=== PATIENT | female | born 1980 | race Caucasian/White ===

== ENCOUNTER 2016-08-11 14:56 | Outpatient (CLI) | payer MEDICAID | END 2016-08-11 14:57 | disposition home or self-care (01) | DX: M54.5 Low back pain (principal) ==

== ENCOUNTER 2017-05-08 15:28 | Emergency (ER) | payer MEDICAID ==
[2017-05-08 15:37] VITALS: BP 104/66
--- NOTE | 2017-05-08 15:56 | ED Physician Documentation ---
PD HPI UPPER EXT INJURY - Stated complaint Stated Complaint: RT ARM PX - Chief complaint Chief Complaint: Ext Problem - History of Present Illness Location: Right, Forearm Type of injury: Blunt / blow (she hit a boulder with pickax 5 days ago, with pain right wrist, that has persisted. Creakiy feeling with ROM.) Where injury occurred: Work Timing - onset: How many days ago (4) Timing - duration: Days (4) Improved by: Rest Worsened by: Moving, Palpating Associated symptoms: Swelling. No: Weakness, Numbness, Discolored Similar symptoms before: Has not had sx before Recently seen: Not recently seen Review of Systems Skin: denies: Abrasion (s), Laceration (s) Neurologic: denies: Focal weakness, Numbness PD PAST MEDICAL HISTORY - Past Medical History Cardiovascular: None Respiratory: None Neuro: None Endocrine/Autoimmune: None Musculoskeletal: None - Past Surgical History General: Appendectomy - Present Medications Home Medications: Ambulatory Orders Medication Instructions Recorded Confirmed DULoxetine [Cymbalta] 30 mg PO DAILY 05/08/17 05/08/17 HYDROcod/ACETAM 5/325 [[place] 5/325] 1 tab PO Q6H PRN #15 tablet 05/08/17 - Allergies Allergies/Adverse Reactions: Allergies Allergy/AdvReac Type Severity Reaction Status Date / Time No Known Drug Allergies Allergy Verified 05/08/17 15:37 PD ED PE NORMAL - Vitals Vital signs reviewed: Yes - General General: Alert and oriented X 3, No acute distress, Well developed/nourished - Derm Derm: Normal color, Warm and dry, No rash - Extremities Extremities: Other (right wrist with some swelling over radial dorsal area. Tender locally. No redness nor sores. Creaky feeling eith thumb extension and wrist extension c/w tendonitis. ) Results - Labs Labs: Laboratory Tests 05/08/17 16:25 Ur Specific [place] 1.025 Urine HCG, Qual NEGATIVE - Rads (name of study) wrist Radiology: Prelim report reviewed (no fracture) PD MEDICAL DECISION MAKING - ED course Complexity details: reviewed results (no fracture), considered differential ( has crepitant feeling on movement c/w tendonitis for thumb and wrist (EPL and ECR tendons)), d/w patient Departure - Departure Disposition: 01 Home, Self Care Clinical Impression: Tendonitis of wrist, right Right wrist sprain Qualifiers: Encounter type: initial encounter Qualified Code(s): S63.501A - Unspecified sprain of right wrist, initial encounter Condition: Stable Record reviewed to determine appropriate education?: Yes Follow-Up: Muriel Jimenez ARNP [Primary Care Provider] - Prescriptions: HYDROcod/ACETAM 5/325 [[place] 5/325] 1 tab PO Q6H PRN #15 tablet PRN Reason: Pain Comments: Ibuprofen 2-3 times a day for the next week. Wrist splint for the wrist and thumb to help reduce motion and irritation of the muscles and tendons. Add Tylenol or hydrocodone if needed for pain. This should improve slowly over the next week or so. Follow-up with your primary care if not. Discharge Date/Time: 05/08/17 17:36
[2017-05-08 16:42] LABS: HCG UR QUAL NEGATIVE
--- NOTE | 2017-05-08 17:05 | XRAY Preliminary Report ---
Exam: XR FOREARM RT IMPRESSION: No fracture or subluxation. [facility] SITE ID: [id number]
--- NOTE | 2017-05-08 17:08 | XRAY Report ---
EXAM: RIGHT FOREARM RADIOGRAPHY EXAM DATE: 05/08/2017 04:55 PM. CLINICAL HISTORY: Wrist injury few days ago. COMPARISON: None. TECHNIQUE: 2 views. FINDINGS: Bones: Normal. No fractures or bone lesions. Joints: Normal. No effusions or subluxations in the visualized wrist or elbow joints. Soft Tissues: Normal. No soft tissue swelling. IMPRESSION: No fracture or subluxation. [facility] Referring Provider Line: [phone] SITE ID: [id number]
== END 2017-05-08 17:36 | disposition home or self-care (01) ==
LOC: ED 15:28
DX: M77.9 Enthesopathy, unspecified (principal); S63.501A Unspecified sprain of right wrist, initial encounter; W22.09XA Striking against other stationary object, initial encounter; Y93.89 Activity, other specified
CPT/HCPCS: 81025; 99283

== ENCOUNTER 2018-01-11 11:59 | Emergency (ER) | payer SELFPAY ==
[2018-01-11 12:30] LABS: HCG UR QUAL NEGATIVE
--- NOTE | 2018-01-11 12:30 | ED Physician Documentation ---
PD HPI SYNCOPE - Stated complaint Stated Complaint: BLACKED OUT/DIZZT/HEAD INJ - Chief complaint Chief Complaint: Neuro - History obtained from History obtained from: Patient, Friend - History of Present Illness Witnessed: Witnessed Timing - onset: Last night (Her boyfriend saw patient get pale and lightheaded as stood up and then fell unguarded onto deck and struck head hard. Awoke less than a minute later and was dazed. No vomiting. Went to bed and this morning is having some headache and feels incoordinate and slower thought process. Prior to the fainting last night, no headache nor chest pain. She had felt okay during the day. Perhaps had not had much to eat and had just smoked some marijuana (which is common so not an unusual thing for her), was post-coital and went outside and was sitting for a few minutes. Got up and felt lightheaded , then fainted.) Preceding symptoms: Light headed. No: Headache, Chest pain, Abdominal pain, Nausea / vomiting Associated symptoms: Headache (after the fall). No: Chest pain, Nausea / vomiting Contributing factors: Decreased PO intake, Just stood up. No: Recent med change Injury occurred: Fell, Head injury Similar symptoms before: Has not had sx before Recently seen: Not recently seen Review of Systems Constitutional: denies: Fever, Chills, Myalgias Nose: denies: Rhinorrhea / runny nose, Congestion Throat: denies: Sore throat Cardiac: denies: Chest pain / pressure, Palpitations Respiratory: denies: Dyspnea, Cough GI: denies: Abdominal Pain, Nausea, Vomiting, Diarrhea : denies: Dysuria, Frequency, Missed period Skin: denies: Abrasion (s), Laceration (s) Musculoskeletal: denies: Neck pain, Back pain Neurologic: reports: Altered mental status (feels slow thinking today and slightly off balance walking). denies: Focal weakness, Numbness PD PAST MEDICAL HISTORY - Past Medical History Past Medical History: Yes Cardiovascular: None Respiratory: None Endocrine/Autoimmune: None Psych: Depression Musculoskeletal: None - Past Surgical History Past Surgical History: Yes General: Appendectomy - Present Medications Home Medications: Ambulatory Orders Medication Instructions Recorded Confirmed DULoxetine [Cymbalta] 30 mg PO DAILY 05/08/17 05/08/17 HYDROcod/ACETAM 5/325 [[place] 5/325] 1 tab PO Q6H PRN #15 tablet 05/08/17 - Allergies Allergies/Adverse Reactions: Allergies Allergy/AdvReac Type Severity Reaction Status Date / Time No Known Drug Allergies Allergy Verified 05/08/17 15:37 - Social History Does the pt smoke?: Yes Smoking Status: Current every day smoker Does the pt drink ETOH?: No Does the pt have substance abuse?: Yes Substance Use and Type: Marijuana - Immunizations Immunizations are current?: Yes - POLST Patient has POLST: No PD ED PE NORMAL - Vitals Vital signs reviewed: Yes - General General: Alert and oriented X 3, No acute distress, Well developed/nourished - HEENT HEENT: PERRL, EOMI, Ears normal, Moist mucous membranes, Pharynx benign, Other ( back of head tender with slight focal swelling right side. 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, No motor deficit, No sensory deficit, Normal speech Eye Opening: Spontaneous Motor: Obeys Commands Verbal: Oriented GCS Score: 15 Results - Vitals Vitals: Oxygen O2 Source Room air - Labs Labs: Laboratory Tests 01/11/18 01/11/18 01/11/18 12:08 12:20 12:20 WBC 10.9 H RBC 4.94 Hgb 15.1 Hct 45.7 MCV 92.5 MCH 30.5 MCHC 32.9 RDW 12.7 Plt Count 299 MPV 7.8 L Neut # (Auto) 7.5 H Lymph # (Auto) 2.6 [place] # (Auto) 0.6 Eos # (Auto) 0.1 Baso # (Auto) 0.0 Absolute Nucleated RBC 0.00 Nucleated RBC % 0.0 Sodium 135 Potassium 3.5 Chloride 103 Carbon Dioxide 27 Anion Gap 5.0 L BUN 15 Creatinine 0.7 Estimated GFR (MDRD) 95 Glucose 99 POC Whole Bld Glucose 87 Calcium 9.3 Total Bilirubin 0.6 AST 16 ALT 14 Alkaline Phosphatase 43 Total Protein 7.7 Albumin 4.7 Globulin 3.0 Albumin/Globulin Ratio 1.6 Lipase 28 Urine Color Urine Clarity Urine pH Ur Specific [place] Urine Protein Urine Glucose (UA) Urine Ketones Urine Occult Blood Urine Nitrite Urine Bilirubin Urine Urobilinogen Ur Leukocyte Esterase Ur Microscopic Review Urine Culture Comments Urine HCG, Qual 01/11/18 01/11/18 12:20 12:22 WBC RBC Hgb Hct MCV MCH MCHC RDW Plt Count MPV Neut # (Auto) Lymph # (Auto) [place] # (Auto) Eos # (Auto) Baso # (Auto) Absolute Nucleated RBC Nucleated RBC % Sodium Potassium Chloride Carbon Dioxide Anion Gap BUN Creatinine Estimated GFR (MDRD) Glucose POC Whole Bld Glucose Calcium Total Bilirubin AST ALT Alkaline Phosphatase Total Protein Albumin Globulin Albumin/Globulin Ratio Lipase Urine Color YELLOW Urine Clarity CLEAR Urine pH 5.5 Ur Specific [place] 1.025 1.025 Urine Protein NEGATIVE Urine Glucose (UA) NEGATIVE Urine Ketones NEGATIVE Urine Occult Blood NEGATIVE Urine Nitrite NEGATIVE Urine Bilirubin NEGATIVE Urine Urobilinogen 0.2 (NORMAL) Ur Leukocyte Esterase NEGATIVE Ur Microscopic Review NOT INDICATED Urine Culture Comments NOT INDICATED Urine HCG, Qual NEGATIVE - Rads (name of study) head CT Radiology: Prelim report reviewed, EMP read contemporaneously PD MEDICAL DECISION MAKING - ED course Complexity details: considered differential (the fainting seems likely postural and a confluence of minor factors (underhydrated perhaps, post-coital, etc) and the current symptoms sound concussive. No ICH on CT. ), d/w patient - Sepsis Event Vital Signs: Oxygen O2 Source Room air Departure - Departure Disposition: 01 Home, Self Care Clinical Impression: Episode of syncope Qualifiers: Syncope type: unspecified Qualified Code(s): R55 - Syncope and collapse Mild concussion Qualifiers: Encounter type: initial encounter Loss of consciousness presence/duration: with LOC of 30 min or less Qualified Code(s): S06.0X1A - Concussion with loss of consciousness of 30 minutes or less, initial encounter Condition: Stable Record reviewed to determine appropriate education?: Yes Instructions: ED Concussion, ED Fainting Unkn Cause Follow-Up: Muriel Jimenez ARNP [Primary Care Provider] - Comments: Tylenol or ibuprofen if needed for pains. Drink lots of fluids. It sounds like your fainting episode was likely a combination of mild influences that led to transient drop in blood pressure. Your basic testing here does not show other obvious causes. Your symptoms today are likely concussion from hitting her head. Your head CT appears normal. Like leave the symptoms will resolve over the next 2-3 days. Sometimes it can last longer though. Recheck if not improved over the next week. Forms: Activity restrictions Discharge Date/Time: 01/11/18 13:39
[2018-01-11 12:33] LABS: BASOPHILS % (AUTO) 0.3 %; EOSINOPHILS # (AUTO) 0.1 10^3/uL (0.0-0.7); EOSINOPHILS % (AUTO) 0.9 %; HGB - HEMOGLOBIN 15.1 g/dL (12.0-16.0); LYMPHOCYTES # (AUTO) 2.6 10^3/uL (1.5-3.5); LYMPHOCYTES % (AUTO) 23.6 %; MEAN CORPUSCULAR HEMOGLOBIN 30.5 pg (27.0-31.0); MEAN CORPUSCULAR HGB CONC 32.9 g/dL (32.0-36.0); MEAN CORPUSCULAR VOLUME 92.5 fL (81.0-99.0); MEAN PLATELET VOLUME 7.8 fL (7.9-10.8); MONOCYTES # (AUTO) 0.6 10^3/uL (0.0-1.0); MONOCYTES % (AUTO) 5.9 %; NEUTROPHILS # (AUTO) 7.5 10^3/uL (1.5-6.6); NEUTROPHILS % (AUTO) 69.3 %; PLT - PLATELET COUNT 299 10^3/uL (130-450); RED BLOOD COUNT 4.94 10^6/uL (4.20-5.40); RED CELL DISTRIBUTION WIDTH 12.7 % (12.0-15.0); WHITE BLOOD COUNT 10.9 x10^3/uL (4.8-10.8)
[2018-01-11 12:39] LABS: ALBUMIN 4.7 g/dL (3.2-5.5); ALBUMIN/GLOBULIN RATIO 1.6 (1.0-2.2); BILIRUBIN,TOTAL 0.6 mg/dL (0.2-1.0); CALCIUM 9.3 mg/dL (8.5-10.3); CREATININE 0.7 mg/dL (0.4-1.0); TOTAL PROTEIN 7.7 g/dL (6.7-8.2)
[2018-01-11 12:42] LABS: CLARITY,URINE CLEAR (CLEAR); LEUKOCYTE ESTERASE, URINE NEGATIVE (NEGATIVE); NITRITE,URINE NEGATIVE (NEGATIVE); PH,URINE 5.5 PH (5.0-7.5); PROTEIN,URINE NEGATIVE (NEGATIVE); UROBILINOGEN,URINE 0.2 (NORMAL) E.U./dL (NORMAL)
[2018-01-11 12:43] LABS: BILIRUBIN,URINE NEGATIVE (NEGATIVE); GLUCOSE, URINE (UA) NEGATIVE (NEGATIVE); KETONES,URINE (UA) NEGATIVE (NEGATIVE); OCCULT BLOOD,URINE NEGATIVE (NEGATIVE)
--- NOTE | 2018-01-11 13:08 | CT Report ---
Procedure Date: 01/11/2018 Accession Number: [id number] / [id number] Procedure: CT - Head W/O CPT Code: FULL RESULT: EXAM: CT HEAD EXAM DATE: 01/11/2018 12:38 PM. CLINICAL HISTORY: Concussion loc ataxic gait. COMPARISON: None. TECHNIQUE: Multiaxial CT images were obtained from the foramen magnum to the vertex. Reformats: Coronal. IV contrast: None. In accordance with CT protocol optimization, one or more of the following dose reduction techniques were utilized for this exam: automated exposure control, adjustment of mA and/or KV based on patient size, or use of iterative reconstructive technique. FINDINGS: Parenchyma: No intraparenchymal hemorrhage. No evidence of mass, midline shift, or CT findings of infarction. Trivedi-white differentiation is distinct. Extraaxial Spaces: Normal for age. No subdural or epidural collections identified. Ventricles: Normal in size and position. Sinuses and Orbits: Imaged paranasal sinuses, orbits, and mastoids show no significant abnormality. Bones: No evidence of fracture or calvarial defect. Other: None. IMPRESSION: Normal head CT. [facility]
[2018-01-11] MEDS ORDERED: IBUPROFEN 600 MG TABLET PO STA (13:20)
[2018-01-11] MEDS ORDERED: ACETAMINOPHEN 325 MG TABLET PO STA (13:20)
[2018-01-11 13:37] VITALS: BP 108/70
== END 2018-01-11 13:39 | disposition home or self-care (01) ==
LOC: ED 11:59
DX: R55 Syncope and collapse (principal); S06.0X1A Concussion with loss of consciousness of 30 minutes or less, initial encounter; X58.XXXA Exposure to other specified factors, initial encounter; F17.200 Nicotine dependence, unspecified, uncomplicated
CPT/HCPCS: 36415; 70450; 80053; 81003; 81025; 83690; 85025; 93005; 99283; A9270; 81001; 87086

== ENCOUNTER 2020-10-23 18:29 | Outpatient (CLI) | payer OTHER ==
--- NOTE | 2020-10-24 16:47 | XRAY Report ---
PROCEDURE: Knee 2 View RT INDICATIONS: CANCER RIGHT LEG TECHNIQUE: 2 views of the right knee(s) were acquired. COMPARISON: None. FINDINGS: Bones: No fractures or dislocations. No suspicious bony lesions. Soft tissues: No joint effusion. No suspicious soft tissue calcifications. There is an ill-defined approximately 15 mm soft tissue density at the skin surface located approximately 15 mm inferior to the metallic marker. IMPRESSION: Ill-defined approximate 15 mm subcutaneous soft tissue density as above. It is overall n onspecific. Given concern for malignancy, further evaluation with MRI with and without contrast is re commended. Reviewed by: Sherri Gill MD on 10/24/2020 4:45 PM PDT Approved by: Sherri Gill MD on 10/24/2020 4:45 PM PDT Station ID: [id number]
== END 2020-10-23 18:30 | disposition home or self-care (01) ==
LOC: DI 18:29
PROVIDERS: ATTEND Internal Medicine
DX: C43.71 Malignant melanoma of right lower limb, including hip (principal)

== ENCOUNTER 2021-01-07 10:12 | Emergency (ER) | payer OTHER ==
--- NOTE | 2021-01-07 10:22 | ED Physician Documentation ---
PD HPI HEENT - Stated complaint Stated Complaint: STIFF JAW - History obtained from History obtained from: Patient - History of Present Illness Timing - onset: How many days ago (3) Timing - duration: Days (3) Timing - details: Abrupt onset, Still present Location: Mouth (pain in right jaw/mandible with feeling of muscle stiffness with opening/ chewing. Also had muscle cramp in foot while starting to sleep last night. That is improved today. General feeling of aches and fatigue as well.) Worsens: No: Swalllowing, Position Associated symptoms: No: Fever, Congestion, Rhinorrhea, Facial swelling, Headache Similar symptoms before: Has not had sx before Recently seen: Clinic (Oncology with starting chemo (2 oral meds that are kinase inhibitors - targeted immune therapy) 3 days ago for melanoma of her right thigh.) Review of Systems Constitutional: denies: Fever, Chills Nose: denies: Rhinorrhea / runny nose, Congestion Throat: denies: Sore throat Respiratory: denies: Cough GI: denies: Nausea, Vomiting, Diarrhea Skin: denies: Rash, Lesions Neurologic: denies: Focal weakness, Numbness, Altered mental status, Headache PD PAST MEDICAL HISTORY - Past Medical History Cardiovascular: None Respiratory: None Endocrine/Autoimmune: None Psych: Depression Musculoskeletal: None - Past Surgical History Past Surgical History: Yes General: Appendectomy - Present Medications Home Medications: Ambulatory Orders Medication Instructions Recorded Confirmed Dabrafenib Mesylate [Tafinlar] 150 mg pe PO BID 01/07/21 01/07/21 Trametinib Dimethyl Sulfoxide 2 mg PO DAILY 01/07/21 01/07/21 [Mekinist] tiZANidine [Zanaflex] 4 mg PO Q8H PRN #25 tablet 01/07/21 - Allergies Allergies/Adverse Reactions: Allergies Allergy/AdvReac Type Severity Reaction Status Date / Time No Known Drug Allergies Allergy Verified 01/07/21 10:33 - Social History Does the pt smoke?: Yes Smoking Status: Current every day smoker Does the pt drink ETOH?: No Does the pt have substance abuse?: Yes - Immunizations Immunizations are current?: Yes - POLST Patient has POLST: No PD ED PE NORMAL - Vitals Vital signs reviewed: Yes - General General: Alert and oriented X 3, No acute distress, Well developed/nourished - HEENT HEENT: Pharynx benign, Dentition benign (no gum swelling nor local tenderness to palpation. ) - Neck Neck: Supple, no meningeal sign, No adenopathy - Cardiac Cardiac: RRR, No murmur - Respiratory Respiratory: Clear bilaterally - Derm Derm: Normal color, Warm and dry - Extremities Extremities: No tenderness to palpate, Normal ROM s pain, No edema, No calf tenderness / cord - Neuro Neuro: Alert and oriented X 3, No motor deficit, Normal speech Eye Opening: Spontaneous Motor: Obeys Commands Verbal: Oriented GCS Score: 15 Results - Vitals Vitals: Vital Signs - 24 hr 01/07/21 10:29 Temperature 37.1 C Heart Rate 67 Respiratory 16 Rate Blood Pressure 122/75 O2 Saturation 99 Oxygen O2 Source Room air - Labs Labs: Laboratory Tests 01/07/21 01/07/21 11:09 11:09 WBC 6.2 RBC 4.41 Hgb 13.6 Hct 40.3 MCV 91.4 MCH 30.8 MCHC 33.7 RDW 12.1 Plt Count 249 MPV 9.4 Neut # (Auto) 2.7 Lymph # (Auto) 2.9 [place] # (Auto) 0.5 Eos # (Auto) 0.1 Baso # (Auto) 0.0 Absolute Nucleated RBC 0.00 Nucleated RBC % 0.0 Sodium 139 Potassium 4.2 Chloride 104 Carbon Dioxide 27 Anion Gap 8.0 BUN 15 Creatinine 0.7 Estimated GFR (MDRD) 94 Glucose 84 Calcium 9.3 Magnesium 2.1 Total Bilirubin 0.6 AST 16 ALT 13 Alkaline Phosphatase 36 L Total Creatine Kinase 107 Total Protein 6.4 L Albumin 4.5 Globulin 1.9 L Albumin/Globulin Ratio 2.4 H Lipase 27 - Rads (name of study) max/facial CT Radiology: Prelim report reviewed (no acute bony lesions/masses), See rad report PD MEDICAL DECISION MAKING - ED course Complexity details: reviewed results (MFM CT without lesions. Labs good. Presume myalgias and cramps as side effect of her chemo, with one of them having muscle pains as listed common side effect. ), considered differential (likely muscle spasms as listed side effect of her chemo. Concern from her Oncology office is the pain in jaw after starting chemo 3 days ago could be "uncovering" of bone met and reaction of the lesion to the chemo, so Oncology wanting imaging of the area. Referred pt to the ER. ), d/w patient, d/w strategic planning consultant ([facility] Oncology Nurse who did ask for imaging of jaw due to concern for mets from melanoma. Labs too regarding lytes. ) Departure - Departure Disposition: Home, Self Care Clinical Impression: Muscle spasm Condition: Stable Record reviewed to determine appropriate education?: Yes Follow-Up: JAREN ARMIJO MD [Physician No Access] - Prescriptions: tiZANidine [Zanaflex] 4 mg PO Q8H PRN #25 tablet PRN Reason: Spasms Comments: I talked with the medical oncology office and gave them the results. They did say that a muscle relaxant would be appropriate to use if needed for spasms, and also to be sure to stay well-hydrated. Follow-up Wednesday as planned. Discharge Date/Time: 01/07/21 12:04
[2021-01-07 10:33] VITALS: BP 122/75
[2021-01-07 11:13] LABS: BASOPHILS % (AUTO) 0.2 %; EOSINOPHILS # (AUTO) 0.1 10^3/uL (0.0-0.7); EOSINOPHILS % (AUTO) 1.1 %; HCT - HEMATOCRIT 40.3 % (37.0-47.0); HGB - HEMOGLOBIN 13.6 g/dL (12.0-16.0); LYMPHOCYTES # (AUTO) 2.9 10^3/uL (1.5-3.5); LYMPHOCYTES % (AUTO) 46.1 %; MEAN CORPUSCULAR HEMOGLOBIN 30.8 pg (27.0-31.0); MEAN CORPUSCULAR HGB CONC 33.7 g/dL (32.0-36.0); MEAN CORPUSCULAR VOLUME 91.4 fL (81.0-99.0); MEAN PLATELET VOLUME 9.4 fL (7.9-10.8); MONOCYTES # (AUTO) 0.5 10^3/uL (0.0-1.0); MONOCYTES % (AUTO) 8.4 %; NEUTROPHILS # (AUTO) 2.7 10^3/uL (1.5-6.6); PLT - PLATELET COUNT 249 10^3/uL (130-450); RED BLOOD COUNT 4.41 10^6/uL (4.20-5.40); RED CELL DISTRIBUTION WIDTH 12.1 % (12.0-15.0); WHITE BLOOD COUNT 6.2 x10^3/uL (4.8-10.8)
[2021-01-07 11:27] LABS: ALBUMIN 4.5 g/dL (3.2-5.5); ALBUMIN/GLOBULIN RATIO 2.4 (1.0-2.2); BILIRUBIN,TOTAL 0.6 mg/dL (0.2-1.0); CALCIUM 9.3 mg/dL (8.5-10.3); CREATININE 0.7 mg/dL (0.4-1.0); MAGNESIUM 2.1 mg/dL (1.7-2.8); POTASSIUM 4.2 mmol/L (3.5-5.0); TOTAL PROTEIN 6.4 g/dL (6.7-8.2)
--- NOTE | 2021-01-07 11:34 | CT Report ---
PROCEDURE: MAXILLOFACIAL WO INDICATIONS: right jaw pain; h/o melanoma TECHNIQUE: Noncontrast 1.5 mm thick axial images acquired from the mandible through the frontal sinuses, with co karen and sagittal reformatting. For radiation dose reduction, the following was used: automated ex posure control, adjustment of mA and/or kV according to patient size. COMPARISON: Correlation is made with overlapping portions of prior head CT, 01/11/2019 FINDINGS: Image quality: Excellent. Bones and teeth: In this patient with this given history, scrutiny is given to the right mandible. T he right mandible demonstrates a normal appearance, without fractures or suspicious lesions. No dislo cation can be seen at the right temporomandibular joint. The remainder of the mandible is unremarkabl e. Orbital alvarez are intact. Sinus alvarez show no fracture or deformity. Nasal bones and septum are int act. Zygomatic arches are intact. Pterygoid plates are intact. Visualized portions of the skull ba se and auditory canals are intact. Sinuses: Paranasal sinuses are aerated, without fluid levels, mucosal thickening, or mucoceles. Mas toid air cells are aerated. Soft tissues: The soft tissues overlying the right mandible are within normal limits. No edema, masses, or fluid collections. No enlarged lymph nodes. No soft tissue lacerations or debr is. Vascular: Visualized vascular structures appear normal in the absence of contrast. Bony vascular fo ramina and canals are intact. IMPRESSION: Normal-appearing right mandible and soft tissues overlying the right mandible, without an imaging exp lanation found for the patient's presenting symptoms. Reviewed by: Silvino Mejia MD on 01/07/2021 10:33 AM KYLEE Approved by: Silvino Mejia MD on 01/07/2021 10:33 AM KYLEE Station ID: [id number]
== END 2021-01-07 12:04 | disposition home or self-care (01) ==
LOC: ED 10:12
DX: M62.838 Other muscle spasm (principal); R68.84 Jaw pain; C43.71 Malignant melanoma of right lower limb, including hip; F17.200 Nicotine dependence, unspecified, uncomplicated
CPT/HCPCS: 36415; 80053; 82550; 83690; 83735; 85025; 99283

== ENCOUNTER 2021-01-17 15:01 | Emergency (ER) | payer OTHER ==
[2021-01-17] MEDS ORDERED: KETOROLAC 30 MG/ML VIAL IVP STA (15:45)
[2021-01-17] MEDS ORDERED: SODIUM CHLORIDE 0.9% 1,000 ML IV STA (15:45)
--- NOTE | 2021-01-17 15:46 | ED Physician Documentation ---
History of Present Illness - Stated complaint Stated Complaint: FEVER,GODDARD,NAUSEA,ACHES - Chief complaint Chief Complaint: General - History obtained from History obtained from: Patient - Additonal information Additional information: 40-year-old woman with stage IIIc melanoma getting 2 rounds of 2 types of immunotherapy had second Pfizer brand Covid vaccine yesterday and overnight developed fevers to 100.5, body aches and headaches. No sore throat, runny nose, shortness of breath, or urinary complaints. Review of Systems Constitutional: reports: Fever, Chills, Myalgias, Fatigue Nose: denies: Rhinorrhea / runny nose Throat: denies: Sore throat Respiratory: denies: Dyspnea, Cough PD PAST MEDICAL HISTORY - Past Medical History Cardiovascular: None Respiratory: None Endocrine/Autoimmune: None Psych: Depression Musculoskeletal: None - Past Surgical History Past Surgical History: Yes General: Appendectomy Derm: Skin cancer surgery - Present Medications Home Medications: Ambulatory Orders Medication Instructions Recorded Confirmed Dabrafenib Mesylate [Tafinlar] 150 mg pe PO BID 01/07/21 01/07/21 Trametinib Dimethyl Sulfoxide 2 mg PO DAILY 01/07/21 01/07/21 [Mekinist] tiZANidine [Zanaflex] 4 mg PO Q8H PRN #25 tablet 01/07/21 - Allergies Allergies/Adverse Reactions: Allergies Allergy/AdvReac Type Severity Reaction Status Date / Time No Known Drug Allergies Allergy Verified 01/17/21 15:05 - Social History Does the pt smoke?: Yes Smoking Status: Current every day smoker Does the pt drink ETOH?: No Does the pt have substance abuse?: Yes - Immunizations Immunizations are current?: Yes - POLST Patient has POLST: No PD ED PE NORMAL - Vitals Vital signs reviewed: Yes - General General: Alert and oriented X 3, No acute distress - HEENT HEENT: Pharynx benign - Cardiac Cardiac: RRR, No murmur - Respiratory Respiratory: No respiratory distress, Clear bilaterally - Abdomen Abdomen: Non tender - Derm Derm: No rash - Neuro Neuro: Alert and oriented X 3, Normal speech Results - Vitals Vitals: Vital Signs - 24 hr 01/17/21 15:05 Temperature 37.7 C Heart Rate 100 Respiratory 16 Rate Blood Pressure 108/69 O2 Saturation 98 Oxygen O2 Source Room air - Labs Labs: Laboratory Tests 01/17/21 01/17/21 15:58 15:58 WBC 4.6 L RBC 4.78 Hgb 14.3 Hct 42.7 MCV 89.3 MCH 29.9 MCHC 33.5 RDW 12.3 Plt Count 178 MPV 9.8 Neut # (Auto) 2.4 Lymph # (Auto) 1.6 [place] # (Auto) 0.5 Eos # (Auto) 0.0 Baso # (Auto) 0.0 Absolute Nucleated RBC 0.00 Nucleated RBC % 0.0 Sodium 132 L Potassium 3.8 Chloride 101 Carbon Dioxide 25 Anion Gap 6.0 BUN 12 Creatinine 0.7 Estimated GFR (MDRD) 94 Glucose 101 H Calcium 8.8 PD MEDICAL DECISION MAKING - ED course ED course: 40-year-old woman on immunotherapy for type stage IIIc melanoma presents with typical post vaccine reaction after Covid vaccine. Sent in to rule out more significant issue, given the fairly normal white count and lack of neutropenia I do not think any other specific intervention is necessary. Departure - Departure Disposition: 01 Home, Self Care Clinical Impression: Vaccine reaction Qualifiers: Encounter type: initial encounter Qualified Code(s): T50.Z95A - Adverse effect of other vaccines and biological substances, initial encounter Condition: Good Record reviewed to determine appropriate education?: Yes Instructions: ED Fever Unconf Cause Comments: You should be better within 24 hours, return for new or worsening symptoms.
[2021-01-17 16:06] LABS: BASOPHILS % (AUTO) 0.2 %; EOSINOPHILS % (AUTO) 0.4 %; HCT - HEMATOCRIT 42.7 % (37.0-47.0); HGB - HEMOGLOBIN 14.3 g/dL (12.0-16.0); LYMPHOCYTES # (AUTO) 1.6 10^3/uL (1.5-3.5); LYMPHOCYTES % (AUTO) 34.5 %; MEAN CORPUSCULAR HEMOGLOBIN 29.9 pg (27.0-31.0); MEAN CORPUSCULAR HGB CONC 33.5 g/dL (32.0-36.0); MEAN CORPUSCULAR VOLUME 89.3 fL (81.0-99.0); MEAN PLATELET VOLUME 9.8 fL (7.9-10.8); MONOCYTES # (AUTO) 0.5 10^3/uL (0.0-1.0); MONOCYTES % (AUTO) 11.6 %; NEUTROPHILS # (AUTO) 2.4 10^3/uL (1.5-6.6); NEUTROPHILS % (AUTO) 53.1 %; PLT - PLATELET COUNT 178 10^3/uL (130-450); RED BLOOD COUNT 4.78 10^6/uL (4.20-5.40); RED CELL DISTRIBUTION WIDTH 12.3 % (12.0-15.0); WHITE BLOOD COUNT 4.6 x10^3/uL (4.8-10.8)
[2021-01-17 16:12] LABS: CALCIUM 8.8 mg/dL (8.5-10.3); CREATININE 0.7 mg/dL (0.4-1.0); POTASSIUM 3.8 mmol/L (3.5-5.0)
[2021-01-17 16:23] VITALS: BP 111/64
== END 2021-01-17 16:55 | disposition home or self-care (01) ==
LOC: ED 15:01
DX: R50.9 Fever, unspecified (principal); R51.9 Headache, unspecified; M79.10 Myalgia, unspecified site; T50.Z95A Adverse effect of other vaccines and biological substances, initial encounter; C43.9 Malignant melanoma of skin, unspecified; F17.200 Nicotine dependence, unspecified, uncomplicated
CPT/HCPCS: 36415; 80048; 85025; 99283

== ENCOUNTER 2021-02-25 18:24 | Outpatient (CLI) | payer OTHER ==
[2021-02-25 18:56] LABS: BASOPHILS % (AUTO) 0.2 %; EOSINOPHILS # (AUTO) 0.1 10^3/uL (0.0-0.7); EOSINOPHILS % (AUTO) 1.2 %; HGB - HEMOGLOBIN 13.5 g/dL (12.0-16.0); LYMPHOCYTES # (AUTO) 3.4 10^3/uL (1.5-3.5); LYMPHOCYTES % (AUTO) 64.8 %; MEAN CORPUSCULAR HEMOGLOBIN 29.9 pg (27.0-31.0); MEAN CORPUSCULAR HGB CONC 32.9 g/dL (32.0-36.0); MEAN CORPUSCULAR VOLUME 90.7 fL (81.0-99.0); MEAN PLATELET VOLUME 9.2 fL (7.9-10.8); MONOCYTES # (AUTO) 0.5 10^3/uL (0.0-1.0); MONOCYTES % (AUTO) 10.4 %; NEUTROPHILS # (AUTO) 1.2 10^3/uL (1.5-6.6); NEUTROPHILS % (AUTO) 23.2 %; PLT - PLATELET COUNT 275 10^3/uL (130-450); RED BLOOD COUNT 4.52 10^6/uL (4.20-5.40); RED CELL DISTRIBUTION WIDTH 12.6 % (12.0-15.0); WHITE BLOOD COUNT 5.2 x10^3/uL (4.8-10.8)
[2021-02-25 19:05] LABS: ALBUMIN 4.5 g/dL (3.2-5.5); ALBUMIN/GLOBULIN RATIO 1.7 (1.0-2.2); BILIRUBIN,TOTAL 0.5 mg/dL (0.2-1.0); CREATININE 0.8 mg/dL (0.4-1.0); POTASSIUM 4.1 mmol/L (3.5-5.0); TOTAL PROTEIN 7.2 g/dL (6.7-8.2)
== END 2021-02-25 18:25 | disposition home or self-care (01) ==
LOC: LAB 18:24
PROVIDERS: ATTEND Internal Medicine
DX: C43.71 Malignant melanoma of right lower limb, including hip (principal); C43.9 Malignant melanoma of skin, unspecified; C77.9 Secondary and unspecified malignant neoplasm of lymph node, unspecified
CPT/HCPCS: 36415; 80053; 85025

== ENCOUNTER 2021-03-25 18:45 | Outpatient (CLI) | payer OTHER ==
[2021-03-25 19:14] LABS: ALBUMIN 4.3 g/dL (3.2-5.5); ALBUMIN/GLOBULIN RATIO 1.6 (1.0-2.2); BILIRUBIN,TOTAL 0.3 mg/dL (0.2-1.0); CALCIUM 9.2 mg/dL (8.5-10.3); CREATININE 0.8 mg/dL (0.4-1.0); POTASSIUM 3.8 mmol/L (3.5-5.0)
== END 2021-03-25 18:46 | disposition home or self-care (01) ==
LOC: LAB 18:45
PROVIDERS: ATTEND Internal Medicine
DX: C43.71 Malignant melanoma of right lower limb, including hip (principal); C43.9 Malignant melanoma of skin, unspecified; C77.9 Secondary and unspecified malignant neoplasm of lymph node, unspecified
CPT/HCPCS: 36415; 80053

== ENCOUNTER 2021-04-23 17:57 | Outpatient (CLI) | payer OTHER ==
[2021-04-23 18:25] LABS: BASOPHILS % (AUTO) 0.2 %; EOSINOPHILS # (AUTO) 0.1 10^3/uL (0.0-0.7); EOSINOPHILS % (AUTO) 1.3 %; HCT - HEMATOCRIT 40.5 % (37.0-47.0); LYMPHOCYTES # (AUTO) 3.2 10^3/uL (1.5-3.5); LYMPHOCYTES % (AUTO) 51.9 %; MEAN CORPUSCULAR HEMOGLOBIN 29.4 pg (27.0-31.0); MEAN CORPUSCULAR HGB CONC 32.1 g/dL (32.0-36.0); MEAN CORPUSCULAR VOLUME 91.6 fL (81.0-99.0); MEAN PLATELET VOLUME 8.9 fL (7.9-10.8); MONOCYTES # (AUTO) 0.4 10^3/uL (0.0-1.0); MONOCYTES % (AUTO) 5.7 %; NEUTROPHILS # (AUTO) 2.5 10^3/uL (1.5-6.6); NEUTROPHILS % (AUTO) 40.6 %; PLT - PLATELET COUNT 297 10^3/uL (130-450); RED BLOOD COUNT 4.42 10^6/uL (4.20-5.40); WHITE BLOOD COUNT 6.2 x10^3/uL (4.8-10.8)
[2021-04-23 18:27] LABS: ALBUMIN 4.5 g/dL (3.2-5.5); ALBUMIN/GLOBULIN RATIO 1.8 (1.0-2.2); BILIRUBIN,TOTAL 0.6 mg/dL (0.2-1.0); CALCIUM 9.4 mg/dL (8.5-10.3); CREATININE 0.8 mg/dL (0.4-1.0); POTASSIUM 4.2 mmol/L (3.5-5.0)
== END 2021-04-23 17:58 | disposition home or self-care (01) ==
LOC: LAB 17:57
PROVIDERS: ATTEND Internal Medicine
DX: C43.71 Malignant melanoma of right lower limb, including hip (principal); C43.9 Malignant melanoma of skin, unspecified; C77.9 Secondary and unspecified malignant neoplasm of lymph node, unspecified
CPT/HCPCS: 36415; 80053; 85025

== ENCOUNTER 2021-05-18 03:44 | Emergency (ER) | payer OTHER ==
[2021-05-18] MEDS ORDERED: SODIUM CHLORIDE 0.9% 2,109.21 ML IV STA (04:00)
--- NOTE | 2021-05-18 04:00 | ED Physician Documentation ---
History of Present Illness - Stated complaint Stated Complaint: HEADACHE, NAUSEA, DIZZY, FEVER - Chief complaint Chief Complaint: Neuro - History obtained from History obtained from: Patient - Additonal information Additional information: 41-year-old woman with history of stage 3c melanoma on oral chemotherapy (oncologist at [facility] Dr. Jose Hendrickson) presents with fever since yesterday and headache, nausea, dizziness. patient's boyfriend had a work related covid exposure and he and his roommates are sick with URI symptoms. She is isolating from them at present. covid vaccine X 2 in December (patient had low immune system at that time per her report). denies cough, sore throat, congestion, shortness of breath, cp, rash, vomiting, diarrhea, urinary sx, abd pain. patient had temp 102.7 oral at home then multiple elevated temps with a forehead thermometer that she put in the armpit and mouth. Review of Systems Ten Systems: 10 systems reviewed and negative Constitutional: reports: Fever, Chills, Myalgias, Fatigue Cardiac: denies: Chest pain / pressure Respiratory: denies: Dyspnea, Cough GI: reports: Nausea. denies: Vomiting, Diarrhea : denies: Dysuria, Frequency Musculoskeletal: denies: Neck pain Neurologic: reports: Headache PD PAST MEDICAL HISTORY - Past Medical History Cardiovascular: None Respiratory: None Endocrine/Autoimmune: None Psych: Depression Musculoskeletal: None - Past Surgical History Past Surgical History: Yes General: Appendectomy Derm: Skin cancer surgery - Present Medications Home Medications: Ambulatory Orders Medication Instructions Recorded Confirmed Dabrafenib Mesylate [Tafinlar] 150 mg pe PO BID 01/07/21 05/18/21 Trametinib Dimethyl Sulfoxide 2 mg PO DAILY 01/07/21 05/18/21 [Mekinist] tiZANidine [Zanaflex] 4 mg PO Q8H PRN #25 tablet 01/07/21 05/18/21 Magnesium Oxide 400 mg PO DAILY 05/18/21 05/18/21 - Allergies Allergies/Adverse Reactions: Allergies Allergy/AdvReac Type Severity Reaction Status Date / Time azithromycin Allergy Itching Verified 05/18/21 03:49 - Social History Does the pt smoke?: Yes Smoking Status: Current every day smoker Does the pt drink ETOH?: No Does the pt have substance abuse?: Yes - Immunizations Immunizations are current?: Yes - POLST Patient has POLST: No PD ED PE NORMAL - Vitals Vital signs reviewed: Yes - General General: Alert and oriented X 3, No acute distress, Well developed/nourished - HEENT HEENT: Atraumatic, PERRL, EOMI - Neck Neck: Supple, no meningeal sign - Cardiac Cardiac: RRR - Respiratory Respiratory: No respiratory distress, Clear bilaterally - Abdomen Abdomen: Non tender, Non distended - Back Back: No CVA TTP - Derm Derm: Normal color, Warm and dry - Extremities Extremities: No deformity - Neuro Neuro: Alert and oriented X 3 - Psych Psych: Normal mood, Normal affect Results - Vitals Vitals: Vital Signs - 24 hr 05/18/21 05/18/21 05/18/21 03:49 04:19 04:39 Temperature 38.6 C H Heart Rate 124 H 90 87 Respiratory 20 12 22 Rate Blood Pressure 97/64 108/70 103/62 O2 Saturation 95 97 97 05/18/21 05/18/21 05:07 05:52 Temperature 37.3 C Heart Rate 87 78 Respiratory 18 15 Rate Blood Pressure 103/66 106/69 O2 Saturation 97 96 Oxygen O2 Source Room air - Labs Labs: Laboratory Tests 05/18/21 05/18/21 05/18/21 04:10 04:10 04:10 WBC 2.8 L RBC 4.57 Hgb 13.6 Hct 40.4 MCV 88.4 MCH 29.8 MCHC 33.7 RDW 12.6 Plt Count 200 MPV 8.7 Neut # (Auto) Not Reportable Lymph # (Auto) Not Reportable Clay # (Auto) Not Reportable Eos # (Auto) Not Reportable Baso # (Auto) Not Reportable Absolute Nucleated RBC Not Reportable Total Counted 100 Band Neuts % (Manual) 7 Abnorm Lymph % (Manual) 3 Nucleated RBC % Not Reportable Neutrophils # (Manual) 1.6 Lymphocytes # (Manual) 1.2 L Monocytes # (Manual) 0.1 Eosinophils # (Manual) 0.0 Basophils # (Manual) 0.0 Differential Comment MANUAL DIFFERENTIAL WBC Morphology NORMAL APPEARANCE Platelet Estimate NORMAL (130-450,000) Platelet Morphology NORMAL APPEARANCE RBC Morph Micro Appear NORMAL APPEARANCE Sodium 134 L Potassium 3.7 Chloride 101 Carbon Dioxide 23 Anion Gap 10.0 BUN 12 Creatinine 0.8 Estimated GFR (MDRD) 80 L Glucose 123 H Lactic Acid 0.6 Calcium 8.7 Total Bilirubin 0.2 AST 26 ALT 18 Alkaline Phosphatase 50 Total Protein 6.7 Albumin 4.1 Globulin 2.6 Albumin/Globulin Ratio 1.6 Urine Color Urine Clarity Urine pH Ur Specific [place] Urine Protein Urine Glucose (UA) Urine Ketones Urine Occult Blood Urine Nitrite Urine Bilirubin Urine Urobilinogen Ur Leukocyte Esterase Urine RBC Urine WBC Ur Squamous Epith Cells Urine Bacteria Urine Culture Comments Nasal Adenovirus (PCR) Nasal B. parapertussis DNA (PCR) Nasal Coronavir 229E PCR Nasal Coronavir HKU1 PCR Nasal Coronavir NL63 PCR Nasal Coronavir OC43 PCR Nasal Enterovir/Rhinovir PCR Nasal Influenza B PCR Nasal Influenza A PCR Nasal Parainfluen 1 PCR Nasal Parainfluen 2 PCR Nasal Parainfluen 3 PCR Nasal Parainfluen 4 PCR Nasal RSV (PCR) Nasal B.pertussis DNA PCR Nasal C.pneumoniae (PCR) Mariano Human Metapneumo PCR Nasal M.pneumoniae (PCR) Nasal SARS-CoV-2 (PCR) 05/18/21 05/18/21 04:30 05:45 WBC RBC Hgb Hct MCV MCH MCHC RDW Plt Count MPV Neut # (Auto) Lymph # (Auto) Clay # (Auto) Eos # (Auto) Baso # (Auto) Absolute Nucleated RBC Total Counted Band Neuts % (Manual) Abnorm Lymph % (Manual) Nucleated RBC % Neutrophils # (Manual) Lymphocytes # (Manual) Monocytes # (Manual) Eosinophils # (Manual) Basophils # (Manual) Differential Comment WBC Morphology Platelet Estimate Platelet Morphology RBC Morph Micro Appear Sodium Potassium Chloride Carbon Dioxide Anion Gap BUN Creatinine Estimated GFR (MDRD) Glucose Lactic Acid Calcium Total Bilirubin AST ALT Alkaline Phosphatase Total Protein Albumin Globulin Albumin/Globulin Ratio Urine Color YELLOW Urine Clarity CLEAR Urine pH 6.5 Ur Specific [place] 1.020 Urine Protein NEGATIVE Urine Glucose (UA) NEGATIVE Urine Ketones TRACE Urine Occult Blood NEGATIVE Urine Nitrite NEGATIVE Urine Bilirubin NEGATIVE Urine Urobilinogen 0.2 (NORMAL) Ur Leukocyte Esterase NEGATIVE Urine RBC None Seen Urine WBC 0-3 Ur Squamous Epith Cells FEW Squamous Urine Bacteria None Seen Urine Culture Comments NOT INDICATED Nasal Adenovirus (PCR) NOT DETECTED Nasal B. parapertussis DNA (PCR) NOT DETECTED Nasal Coronavir 229E PCR NOT DETECTED Nasal Coronavir HKU1 PCR NOT DETECTED Nasal Coronavir NL63 PCR NOT DETECTED Nasal Coronavir OC43 PCR NOT DETECTED Nasal Enterovir/Rhinovir PCR NOT DETECTED Nasal Influenza B PCR NOT DETECTED Nasal Influenza A PCR NOT DETECTED Nasal Parainfluen 1 PCR NOT DETECTED Nasal Parainfluen 2 PCR NOT DETECTED Nasal Parainfluen 3 PCR NOT DETECTED Nasal Parainfluen 4 PCR NOT DETECTED Nasal RSV (PCR) NOT DETECTED Nasal B.pertussis DNA PCR NOT DETECTED Nasal C.pneumoniae (PCR) NOT DETECTED Mariano Human Metapneumo PCR NOT DETECTED Nasal M.pneumoniae (PCR) NOT DETECTED Nasal SARS-CoV-2 (PCR) NOT DETECTED PD MEDICAL DECISION MAKING - ED course ED course: d/w the laboratory who report the total % neutrophils was 49% with 7% bands and WBC 2.8. ANC 1568 cells/ucL which is normal. patient is not neutropenic. Patient feeling much better after symptomatic care. Source of her fever is still unclear. Low suspicion for meningitis at this time given mentating normally and no nuchal rigidity. Headache, vitals improved significantly with fluids and tylenol. recent known covid exposure but covid test is negative. patient to be dc'd home with close outpatient follow up. strict return precautions given. plan to f/u with her pmd and oncologist. Departure - Departure Disposition: 01 Home, Self Care Clinical Impression: Fever Condition: Good Instructions: ED Fever Unconf Cause Comments: You were seen in the emergency department for fever and headache.We do not have a clear cause for your symptoms right now so you should continue to monitor and follow-up with your primary doctor and your oncologist this week. We will call you to return to the emergency department if your blood cultures show bacterial infection. Please return to the emergency department immediately if you have any new or worsening symptoms or other concerns.
[2021-05-18] MEDS ORDERED: ACETAMINOPHEN 325 MG TABLET PO STA (04:01)
[2021-05-18 04:31] LABS: BASOPHILS % (AUTO) 0.4 %; HCT - HEMATOCRIT 40.4 % (37.0-47.0); HGB - HEMOGLOBIN 13.6 g/dL (12.0-16.0); LYMPHOCYTES % (AUTO) 31.1 %; MEAN CORPUSCULAR HEMOGLOBIN 29.8 pg (27.0-31.0); MEAN CORPUSCULAR HGB CONC 33.7 g/dL (32.0-36.0); MEAN CORPUSCULAR VOLUME 88.4 fL (81.0-99.0); MEAN PLATELET VOLUME 8.7 fL (7.9-10.8); MONOCYTES % (AUTO) 7.4 %; NEUTROPHILS % (AUTO) 60.4 %; PLT - PLATELET COUNT 200 10^3/uL (130-450); RED BLOOD COUNT 4.57 10^6/uL (4.20-5.40); RED CELL DISTRIBUTION WIDTH 12.6 % (12.0-15.0); WHITE BLOOD COUNT 2.8 x10^3/uL (4.8-10.8)
[2021-05-18 04:43] LABS: ALBUMIN 4.1 g/dL (3.2-5.5); ALBUMIN/GLOBULIN RATIO 1.6 (1.0-2.2); BILIRUBIN,TOTAL 0.2 mg/dL (0.2-1.0); CALCIUM 8.7 mg/dL (8.5-10.3); CREATININE 0.8 mg/dL (0.4-1.0); POTASSIUM 3.7 mmol/L (3.5-5.0); TOTAL PROTEIN 6.7 g/dL (6.7-8.2)
[2021-05-18 04:47] LABS: BILIRUBIN,URINE NEGATIVE (NEGATIVE); GLUCOSE, URINE (UA) NEGATIVE (NEGATIVE); KETONES,URINE (UA) TRACE mg/dL (NEGATIVE); LEUKOCYTE ESTERASE, URINE NEGATIVE (NEGATIVE); NITRITE,URINE NEGATIVE (NEGATIVE); OCCULT BLOOD,URINE NEGATIVE (NEGATIVE); PH,URINE 6.5 PH (5.0-7.5); PROTEIN,URINE NEGATIVE (NEGATIVE); UROBILINOGEN,URINE 0.2 (NORMAL) E.U./dL (NORMAL)
[2021-05-18 04:57] LABS: ABNORMAL LYMPHS % (MANUAL) 3 %; BAND NEUTROPHILS % (MANUAL) 7 %; DIFFERENTIAL COMMENT MANUAL DIFFERENTIAL; LYMPHOCYTES # (MANUAL) 1.2 10^3/uL (1.5-3.5); LYMPHOCYTES % (MANUAL) 39 %; MONOCYTES # (MANUAL) 0.1 10^3/uL (0.0-1.0); NEUTROPHILS # (MANUAL) 1.6 10^3/uL (1.5-6.6); PLATELET ESTIMATE, MANUAL NORMAL (130-450,000) (NORMAL); PLATELET MORPHOLOGY NORMAL APPEARANCE (NORMAL); RBC MORPHOLOGY (MULTIPLE) NORMAL APPEARANCE (NORMAL); WBC MORPHOLOGY (MULTIPLE) NORMAL APPEARANCE (NORMAL)
[2021-05-18 05:00] LABS: BACTERIA,URINE None Seen /HPF (None Seen); CLARITY,URINE CLEAR (CLEAR); RBC,URINE None Seen /HPF (0-5); SQUAMOUS EPITHELIAL CELL,UR FEW Squamous (<= Few); WBC,URINE 0-3 /HPF (0-5)
[2021-05-18 06:54] LABS: B. PARAPERTUSSIS- RESP PCR PAN NOT DETECTED; B. PERTUSSIS- RESP PCR PANEL NOT DETECTED; C. PNEUMONIAE- RESP PCR PANEL NOT DETECTED; CORONAVIRUS 229E-RESP PCR NOT DETECTED; CORONAVIRUS HKU1-RESP PCR NOT DETECTED; CORONAVIRUS NL63-RESP PCR NOT DETECTED; CORONAVIRUS OC43-RESP PCR NOT DETECTED; HUMAN METAPNEUMOVIRUS NOT DETECTED; INFLUENZA A- RESP PCR PANEL NOT DETECTED; INFLUENZA B - RESP PCR PANEL NOT DETECTED; M. PNEUMONIAE- RESP PCR PANEL NOT DETECTED; PARAINFLUENZA VIRUS 1 NOT DETECTED; PARAINFLUENZA VIRUS 2 NOT DETECTED; PARAINFLUENZA VIRUS 3 NOT DETECTED; PARAINFLUENZA VIRUS 4 NOT DETECTED; RHINOVIRUS/ENTEROVIRUS NOT DETECTED; RSV- RESP PCR PANEL NOT DETECTED; SARS-CoV-2 -RESP PCR PANEL NOT DETECTED
[2021-05-18 07:39] VITALS: BP 100/61
--- NOTE | 2021-05-18 07:47 | XRAY Report ---
PROCEDURE: Chest 1 View X-Ray INDICATIONS: infection TECHNIQUE: One view of the chest was acquired. COMPARISON: None FINDINGS: Surgical changes and devices: None. Lungs and pleura: No pleural effusions or pneumothorax. Lungs are clear. Mediastinum: Mediastinal contours appear normal. Heart size is normal. Bones and chest wall: No suspicious bony lesions. Overlying soft tissues appear unremarkable. IMPRESSION: No acute cardiopulmonary abnormality. Reviewed by: Neftaly Liu on 05/18/2021 7:46 AM PDT Approved by: Neftaly Liu on 05/18/2021 7:46 AM PDT Station ID: [id number]
== END 2021-05-18 08:07 | disposition home or self-care (01) ==
LOC: ED 03:44
DX: R50.9 Fever, unspecified (principal); R51.9 Headache, unspecified; F17.200 Nicotine dependence, unspecified, uncomplicated; Z20.822 Contact with and (suspected) exposure to COVID-19
CPT/HCPCS: 0202U; 36415; 71045; 80053; 81001; 83605; 85025; 87040; 96360; 96361; 99283; 99284; A9270; 87086

== ENCOUNTER 2021-05-27 18:15 | Outpatient (CLI) | payer OTHER ==
[2021-05-27 18:59] LABS: BASOPHILS % (AUTO) 0.2 %; EOSINOPHILS # (AUTO) 0.1 10^3/uL (0.0-0.7); HCT - HEMATOCRIT 37.6 % (37.0-47.0); HGB - HEMOGLOBIN 12.4 g/dL (12.0-16.0); LYMPHOCYTES # (AUTO) 4.1 10^3/uL (1.5-3.5); LYMPHOCYTES % (AUTO) 47.5 %; MEAN CORPUSCULAR HEMOGLOBIN 29.7 pg (27.0-31.0); MEAN CORPUSCULAR VOLUME 90.2 fL (81.0-99.0); MEAN PLATELET VOLUME 8.4 fL (7.9-10.8); MONOCYTES # (AUTO) 0.5 10^3/uL (0.0-1.0); MONOCYTES % (AUTO) 5.7 %; NEUTROPHILS # (AUTO) 3.9 10^3/uL (1.5-6.6); NEUTROPHILS % (AUTO) 44.9 %; PLT - PLATELET COUNT 338 10^3/uL (130-450); RED BLOOD COUNT 4.17 10^6/uL (4.20-5.40); RED CELL DISTRIBUTION WIDTH 12.8 % (12.0-15.0); WHITE BLOOD COUNT 8.7 x10^3/uL (4.8-10.8)
[2021-05-27 19:12] LABS: ALBUMIN/GLOBULIN RATIO 1.5 (1.0-2.2); BILIRUBIN,TOTAL 0.6 mg/dL (0.2-1.0); CALCIUM 9.2 mg/dL (8.5-10.3); CREATININE 0.8 mg/dL (0.4-1.0); POTASSIUM 4.5 mmol/L (3.5-5.0); TOTAL PROTEIN 6.6 g/dL (6.7-8.2)
== END 2021-05-27 18:16 | disposition home or self-care (01) ==
LOC: LAB 18:15
PROVIDERS: ATTEND Internal Medicine
DX: C43.9 Malignant melanoma of skin, unspecified (principal); C77.9 Secondary and unspecified malignant neoplasm of lymph node, unspecified
CPT/HCPCS: 36415; 80053; 85025

== ENCOUNTER 2021-06-24 17:36 | Outpatient (CLI) | payer OTHER ==
[2021-06-24 17:51] LABS: BASOPHILS % (AUTO) 0.2 %; EOSINOPHILS # (AUTO) 0.2 10^3/uL (0.0-0.7); EOSINOPHILS % (AUTO) 2.4 %; HCT - HEMATOCRIT 38.1 % (37.0-47.0); HGB - HEMOGLOBIN 12.9 g/dL (12.0-16.0); LYMPHOCYTES % (AUTO) 46.1 %; MEAN CORPUSCULAR HEMOGLOBIN 30.2 pg (27.0-31.0); MEAN CORPUSCULAR HGB CONC 33.9 g/dL (32.0-36.0); MEAN CORPUSCULAR VOLUME 89.2 fL (81.0-99.0); MEAN PLATELET VOLUME 8.9 fL (7.9-10.8); MONOCYTES # (AUTO) 0.5 10^3/uL (0.0-1.0); MONOCYTES % (AUTO) 7.9 %; NEUTROPHILS # (AUTO) 2.8 10^3/uL (1.5-6.6); NEUTROPHILS % (AUTO) 43.1 %; PLT - PLATELET COUNT 244 10^3/uL (130-450); RED BLOOD COUNT 4.27 10^6/uL (4.20-5.40); RED CELL DISTRIBUTION WIDTH 12.7 % (12.0-15.0); WHITE BLOOD COUNT 6.6 x10^3/uL (4.8-10.8)
[2021-06-24 18:09] LABS: ALBUMIN 4.1 g/dL (3.2-5.5); ALBUMIN/GLOBULIN RATIO 1.7 (1.0-2.2); BILIRUBIN,TOTAL 0.5 mg/dL (0.2-1.0); CALCIUM 9.1 mg/dL (8.5-10.3); POTASSIUM 4.2 mmol/L (3.5-5.0); TOTAL PROTEIN 6.5 g/dL (6.7-8.2)
== END 2021-06-24 17:37 | disposition home or self-care (01) ==
LOC: LAB 17:36
PROVIDERS: ATTEND Internal Medicine
DX: C43.9 Malignant melanoma of skin, unspecified (principal); C77.9 Secondary and unspecified malignant neoplasm of lymph node, unspecified
CPT/HCPCS: 36415; 80053; 85025

== ENCOUNTER 2021-08-14 17:21 | Outpatient (CLI) | payer OTHER ==
[2021-08-14 17:45] LABS: BASOPHILS % (AUTO) 0.2 %; EOSINOPHILS # (AUTO) 0.1 10^3/uL (0.0-0.7); EOSINOPHILS % (AUTO) 0.9 %; HCT - HEMATOCRIT 41.5 % (37.0-47.0); HGB - HEMOGLOBIN 13.8 g/dL (12.0-16.0); LYMPHOCYTES # (AUTO) 3.1 10^3/uL (1.5-3.5); LYMPHOCYTES % (AUTO) 46.5 %; MEAN CORPUSCULAR HEMOGLOBIN 29.8 pg (27.0-31.0); MEAN CORPUSCULAR HGB CONC 33.3 g/dL (32.0-36.0); MEAN CORPUSCULAR VOLUME 89.6 fL (81.0-99.0); MEAN PLATELET VOLUME 9.4 fL (7.9-10.8); MONOCYTES # (AUTO) 0.4 10^3/uL (0.0-1.0); MONOCYTES % (AUTO) 5.7 %; NEUTROPHILS # (AUTO) 3.1 10^3/uL (1.5-6.6); NEUTROPHILS % (AUTO) 46.5 %; PLT - PLATELET COUNT 262 10^3/uL (130-450); RED BLOOD COUNT 4.63 10^6/uL (4.20-5.40); RED CELL DISTRIBUTION WIDTH 12.8 % (12.0-15.0); WHITE BLOOD COUNT 6.6 x10^3/uL (4.8-10.8)
[2021-08-14 17:58] LABS: ALBUMIN 4.5 g/dL (3.2-5.5); ALBUMIN/GLOBULIN RATIO 1.8 (1.0-2.2); BILIRUBIN,TOTAL 0.4 mg/dL (0.2-1.0); CALCIUM 9.4 mg/dL (8.5-10.3); CREATININE 0.8 mg/dL (0.4-1.0); POTASSIUM 4.1 mmol/L (3.5-5.0)
== END 2021-08-14 17:22 | disposition home or self-care (01) ==
LOC: LAB 17:21
PROVIDERS: ATTEND Internal Medicine
DX: C43.9 Malignant melanoma of skin, unspecified (principal); C77.9 Secondary and unspecified malignant neoplasm of lymph node, unspecified; C43.71 Malignant melanoma of right lower limb, including hip
CPT/HCPCS: 36415; 80053; 83735; 85025

== ENCOUNTER 2021-09-11 18:19 | Outpatient (CLI) | payer OTHER ==
[2021-09-11 18:34] LABS: BASOPHILS % (AUTO) 0.2 %; EOSINOPHILS % (AUTO) 0.8 %; HGB - HEMOGLOBIN 12.6 g/dL (12.0-16.0); LYMPHOCYTES # (AUTO) 3.3 10^3/uL (1.5-3.5); MEAN CORPUSCULAR HEMOGLOBIN 29.5 pg (27.0-31.0); MEAN CORPUSCULAR HGB CONC 33.2 g/dL (32.0-36.0); MEAN PLATELET VOLUME 9.4 fL (7.9-10.8); MONOCYTES # (AUTO) 0.4 10^3/uL (0.0-1.0); MONOCYTES % (AUTO) 7.6 %; NEUTROPHILS # (AUTO) 1.3 10^3/uL (1.5-6.6); NEUTROPHILS % (AUTO) 26.2 %; PLT - PLATELET COUNT 211 10^3/uL (130-450); RED BLOOD COUNT 4.27 10^6/uL (4.20-5.40); RED CELL DISTRIBUTION WIDTH 12.8 % (12.0-15.0)
[2021-09-11 18:46] LABS: ALBUMIN 4.2 g/dL (3.2-5.5); ALBUMIN/GLOBULIN RATIO 1.7 (1.0-2.2); BILIRUBIN,TOTAL 0.4 mg/dL (0.2-1.0); CALCIUM 9.3 mg/dL (8.5-10.3); CREATININE 0.9 mg/dL (0.4-1.0); POTASSIUM 4.1 mmol/L (3.5-5.0); TOTAL PROTEIN 6.7 g/dL (6.7-8.2)
== END 2021-09-11 18:20 | disposition home or self-care (01) ==
LOC: LAB 18:19
PROVIDERS: ATTEND Internal Medicine
DX: C43.9 Malignant melanoma of skin, unspecified (principal); C77.9 Secondary and unspecified malignant neoplasm of lymph node, unspecified; C43.71 Malignant melanoma of right lower limb, including hip
CPT/HCPCS: 36415; 80053; 85025

== ENCOUNTER 2022-11-27 09:53 | Day surgery (SDC) | payer OTHER ==
[2022-11-27] MEDS ORDERED: LACTATED RINGERS 1,000 ML IV ONE ×2 (10:06→12:31)
[2022-11-27 10:07] LABS: HCG UR QUAL NEGATIVE
[2022-11-27] MEDS ORDERED: CEFAZOLIN 2G/50ML 0.9% NS 2 GM/50 ML BAG IV ONE (10:26)
[2022-11-27] MEDS ORDERED: MIDAZOLAM 2 MG/2 ML VIAL ONE (10:29)
[2022-11-27] MEDS ORDERED: fentaNYL 100 MCG/2 ML VIAL ONE (10:30)
[2022-11-27] MEDS ORDERED: LIDOCAINE MPF 2%-EPI 1:200000 20 ML VIAL ONE (10:30)
[2022-11-27] MEDS ORDERED: BUPIVACAINE 0.25% PF 30 ML VIAL ONE (10:30)
[2022-11-27] MEDS ORDERED: LIDOCAINE-PF 2% 10 ML AMP SUBQ ONE (10:31)
--- NOTE | 2022-11-27 10:51 | ANESTHESIA ---
Pre-Anesthesia VS, & Labs - Diagnosis malignant melanoma - Procedure port a cath placement Vital Signs: Temp Pulse Resp BP Pulse Ox O2 Flow Rate 36.2 C L 92 16 109/67 98 11/27/22 10:10 11/27/22 10:10 11/27/22 10:10 11/27/22 10:10 11/27/22 10:10 Height: 5 ft 8 in Weight (kg): 85 kg Body Mass Index: 28.5 BMI Classification: Overweight - NPO >8 hours - Is Patient ?: No - Lab Results Lab results reviewed: Yes Home Medications and Allergies Home Medications: Ambulatory Orders Multivitamin 1 each PO DAILY 11/26/22 Multivitamin 1 each PO DAILY 11/26/22 Allergies/Adverse Reactions: Allergies Allergy/AdvReac Type Severity Reaction Status Date / Time vancomycin Allergy Itching Verified 11/26/22 12:38 Anes History & Medical History - Anesthetic History Anesthesia Complications: reports: No previous complications Family history of Anesthesia Complications: Denies Family history of Malignant Hyperthermia: Denies - Medical History Cardiovascular: reports: None Pulmonary: reports: None Gastrointestinal: reports: None Urinary: reports: None Neuro: reports: None Musculoskeletal: reports: None Endocrine/Autoimmune: reports: None Blood Disorders: reports: None Skin: reports: None Smoking Status: Current every day smoker History of Cancer?: Yes (current malignant melanoma) - Surgical History General: reports: Appendectomy Dermatologic: reports: Skin cancer surgery Exam General: Alert, Oriented x3, Cooperative Dental: WNL Mouth Openin Fingerbreadth Neck Mobility: Normal Mallampati classification: II Thyromental Distance: 4-6 cm Respiratory: Lungs clear, Normal breath sounds, No respiratory distress Cardiovascular: Regular rate Neurological: Normal speech Mental/Cognitive Status: Alert/Oriented X3, Normal for patient Cognitive Status: Within normal limits Plan Anesthesia Type: MAC Consent for Procedure(s) Verified and Reviewed: Yes Code Status: Attempt Resuscitation ASA classification: 3-Severe systemic disease Is this case an emergency?: No
[2022-11-27] MEDS ORDERED: PROPOFOL 200 MG/20 ML VIAL IVP ONE ×2 (10:58→12:11)
--- NOTE | 2022-11-27 11:26 | HISTORY & PHYSICAL EXAMINATION ---
Chief Complaint - Chief Complaint Chief Complaint: here for port placement History of Present Illness - History Obtained From Records Reviewed: yes History obtained from: pt Exam Limitations: none - History of Present Illness HPI Comment/Other: history melanoma. 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 : reports: None HEENT: reports: None Psych: reports: Depression Musculoskeletal: reports: None Derm: reports: None MRSA Hx?: No - Past Surgical History General: reports: Appendectomy Derm: reports: Skin cancer surgery - POLST Patient has POLST: No Meds/Allgy - Home Medications Home Medications: Ambulatory Orders Medication Instructions Recorded Confirmed Multivitamin 1 each PO DAILY 11/26/22 11/26/22 - Allergies Allergies/Adverse Reactions: Allergies Allergy/AdvReac Type Severity Reaction Status Date / Time vancomycin Allergy Itching Verified 11/26/22 12:38 Review of Systems - Other Findings Other Findings: 10 pt ros as above otherwise unremarkable Exam - Vital Signs Reviewed Vital Signs: Yes Vital Signs: Vital Signs x48h Temp Pulse Resp BP Pulse Ox 11/27/22 10:10 36.2 C L 92 16 109/67 98 - Physical Exam General Appearance: positive: No acute distress, Alert Eyes Bilateral: positive: PERRL, EOMI, No scleral icterus ENT: positive: No signs of dehydration Neck: positive: No JVD, Trachea midline Respiratory: positive: No respiratory distress Cardiovascular: positive: Regular rate & rhythm Abdomen: positive: No distention Neurologic/Psychiatric: positive: Oriented x3 Conclusion/Plan - Problem List (1) Melanoma Conclusion/Plan: plan port placement. parq held and consent obtained - Lab Results Lab results reviewed: Yes
[2022-11-27] MEDS ORDERED: BUPIVACAINE 0.25% PF 30 ML VIAL SUBQ ONE ×2 (12:01)
[2022-11-27] MEDS ORDERED: LIDOCAINE MPF 2%-EPI 1:200000 20 ML VIAL SUBQ ONE ×2 (12:01)
[2022-11-27] MEDS ORDERED: SODIUM CHLORIDE 0.9% 100 ML BAG IV ONE (12:10)
[2022-11-27] MEDS ORDERED: HYDROcod/ACETAM 5/325 MG TABLET PO PRN (12:32)
--- NOTE | 2022-11-27 12:53 | ANESTHESIA POST OP EVALUATION ---
Anesthesia Post Eval - Post Anesthesia Eval Vitals: Last Vital Signs Temp 36.0 C L 11/27/22 12:31 Pulse 84 11/27/22 12:31 Resp 14 11/27/22 12:31 BP 101/60 11/27/22 12:31 Pulse Ox 98 11/27/22 12:31 O2 Flow Rate CV Function Including HR & BP: Stable Pain Control: Satisfactory Nausea & Vomiting: Negative Mental Status: Baseline Respiratory Status: Airway Patent Hydration Status: Satisfactory Anesthesia Complications: None
--- NOTE | 2022-11-27 12:59 | OPERATIVE REPORT ---
Operative Report - General Procedure Date: 11/27/22 Planned Procedure: power port placement Pre-Op Diagnosis: melanoma Procedure Performed: power port placement fluoroscopic guidance Post Op Diagnosis: same - Procedure Note Primary Surgeon: birdie dowell Anesthesia Technique: Local, MAC Estimated Blood Loss (mL): 2 Drain/Tube Type: Other (none) Indications: chemotherapy Findings: tip at junction svc, atrium. good flush and flow Complications: none - Other Other Information/Narrative: The patient was properly identified brought to the operating room and placed in supine position. Monitored anesthesia care was given as well as IV sedation. A towel roll was placed under the upper back. The patient was prepped and draped in a sterile fashion and given preoperative antibiotics. Local anesthetic was given. The left subclavian vein was easily accessed first pass with a needle. Guide wire placed and position confirmed. A subcutaneous pocket on the left upper chest was created measuring approximately 2-1/2 cm. Portacatheter tubing was then placed subcutaneous up to the venous access point. The portacatheter tubing was then easily placed with the use of a dilator peel-away sheath. The tubing was aspirated and flushed with saline. Under fluoroscopic guidance the tubing was pulled back to the junction of the atrium and the superior vena cava. The portacatheter aspirated and flushed easily assuring good position. The portacatheter was then cut to size and further assembled. The port was secured to subcutaneous tissue with 2 interrupted 4-0 Prolene sutures. The port again was aspirated and flushed now with heparin. Buried interrupted subdermal 3-0 Vicryl sutures were then placed. Skin was closed with buried interrupted and running 4-0 Monocryl subcuticular suture. Dressing was applied. The patient tolerated the procedure well was awakened and brought to recovery in good condition.
[2022-11-27 13:45] VITALS: BP 100/64
--- NOTE | 2022-11-27 14:42 | XRAY Report ---
PROCEDURE: OR Port-A-Cath INDICATIONS: PORT-A-CATH PLACEMENT CONTRAST: None FLUORO TIME: 000.4 TECHNIQUE: Real time fluoroscopy was performed of the thorax. COMPARISON: None. FINDINGS: Single intraoperative fluoroscopic image obtained. Tip of the chest port catheter appears to project near the superior cavoatrial junction. IMPRESSION: Intraprocedural fluoroscopy was provided for guidance and anatomic localization. Please see the proc edure report for further details. Reviewed by: Nikita Roman MD on 11/27/2022 2:41 PM PDT Approved by: Nikita Roman MD on 11/27/2022 2:41 PM PDT Station ID: [id number]
== END 2022-11-27 09:54 | disposition home or self-care (01) ==
LOC: SDS 09:53
PROVIDERS: ATTEND Surgery
DX: C43.9 Malignant melanoma of skin, unspecified (principal); Z32.02 Encounter for pregnancy test, result negative
CPT/HCPCS: 36561; 81025; C1788; J0690; J7120

== ENCOUNTER 2023-03-23 10:35 | Outpatient (CLI) | payer OTHER ==
--- NOTE | 2023-03-23 17:41 | XRAY Report ---
PROCEDURE: Cervical Spine 2 View INDICATIONS: EVAL FOR FX OR BONY LESION TECHNIQUE: 3 view(s) of the cervical spine were acquired. COMPARISON: None. FINDINGS: Bones: No fractures or dislocations to the T1 level. Straightening of normal cervical lordosis is s een. The lateral masses of C1 appear intact on the odontoid view. No suspicious bony lesions. Soft tissues: No prevertebral soft tissue swelling. IMPRESSION: Mild straightening of normal cervical lordosis. No fracture or dislocation. No suspiciou s bony lesions area Reviewed by: Clem Burgess MD on 03/23/2023 5:40 PM PDT Approved by: Clem Burgess MD on 03/23/2023 5:40 PM PDT Station ID: [id number]
--- NOTE | 2023-03-23 17:41 | XRAY Report ---
PROCEDURE: Thoracic Spine 2 View INDICATIONS: EVAL FOR FX OR BONY LESIONS TECHNIQUE: 2 views of the thoracic spine were acquired. COMPARISON: None. FINDINGS: Bones: No fractures or dislocations. No suspicious bony lesions. 12 pairs of ribs are noted, and a ppear intact where visualized. Soft tissues: No paravertebral stripe thickening. IMPRESSION: No gross abnormality is seen in thoracic spine. Reviewed by: Clem Burgess MD on 03/23/2023 5:39 PM PDT Approved by: Clem Burgess MD on 03/23/2023 5:39 PM PDT Station ID: [id number]
--- NOTE | 2023-03-23 17:41 | XRAY Report ---
PROCEDURE: Shoulder 3 View LT INDICATIONS: EVAL FOR FRACTURES TECHNIQUE: 3 views of the shoulder were acquired. COMPARISON: None. FINDINGS: Bones: No fractures or dislocations. No suspicious bony lesions. Visualized ribs appear intact. Soft tissues: No suspicious soft tissue calcifications. IMPRESSION: No acute bony abnormality. No suspicious bony lesions. No gross soft tissue abnormalities. Reviewed by: Clem Burgess MD on 03/23/2023 5:40 PM PDT Approved by: Clem Burgess MD on 03/23/2023 5:40 PM PDT Station ID: [id number]
== END 2023-03-23 10:36 | disposition home or self-care (01) ==
LOC: DI 10:35
PROVIDERS: ATTEND Internal Medicine
DX: C43.9 Malignant melanoma of skin, unspecified (principal)

== ENCOUNTER 2023-08-14 07:42 | Outpatient (CLI) | payer OTHER | END 2023-08-14 23:59 | disposition EMS.NT | LOC: EMS 07:42 | DX: Z04.1 Encounter for examination and observation following transport accident (principal) ==